=== PATIENT | female | born 1970 | race Caucasian/White ===

== ENCOUNTER 2019-08-17 09:23 | Outpatient (CLI) | payer OTHER, SELFPAY ==
--- NOTE | 2019-08-17 12:19 | CT_ITS ---
WS: [id number] CT ABDOMEN AND PELVIS WITH CONTRAST HISTORY: ABDOMINAL PAIN, RIGHT upper quadrant pain. TECHNIQUE: Imaging performed of the abdomen and pelvis with IV contrast. Single phase imaging of the abdomen. Coronal and sagittal reformats are submitted. All CT scans at [facility] use at least one of these dose optimization techniques: automated exposure control; mA and/or kV adjustment per patient size (includes targeted exams where dose is matched to clinical indication); or iterativ e reconstruction. IV CONTRAST: Omnipaque 300; 95 mL IV. Oral contrast: Yes. DLP: 1077.4 mGycm COMPARISON: 07/27/2019 Lower thorax: Lung bases are clear. Heart is normal size. Small hiatal hernia. Liver/biliary system: Normal size with no intrahepatic dilatation. Gallbladder: Gallbladder is normally distended but contains numerous stones of variable density. Ther e is mild wall thickening and enhancement but no evidence for an acute cholecystitis. Pancreas: Normal. Spleen: Normal. Adrenal glands: Normal. Right kidney: Normal. Left kidney: Hypodense area in the upper pole the LEFT kidney consistent with a small cortical cyst. No solid mass or obstruction. Aorta: Normal. Lymphadenopathy: None. Free fluid: None. GI tract: The appendix is normal and contains air. Moderate fecal retention throughout the colon. No obstruction. Abdominal wall: Unremarkable abdominal wall. No hernia. Pelvis: Urinary bladder is normal size. Prior hysterectomy. Both ovaries are still present and contai n small follicles. No free fluid or adenopathy in the pelvis. Bones: Mild spondylosis in the lower thoracic and lumbar spines. No osseous destruction. CT/CT abdomen pelvis w con* [id number] IMPRESSION: 1. Cholelithiasis without evidence for acute cholecystitis. Numerous stones di stend the gallbladder. 2. Normal appendix. 3. Mild constipation. 4. Small hiatal hernia. 5. Status post hysterectomy.
[2019-08-17] MEDS: iohexol 300 mg/mL 50 mL Btl PO (14:00)
[2019-08-17] MEDS: iohexol 300 mg/mL 100 mL Btl IV (14:02)
== END 2019-08-17 09:24 | disposition home or self-care (01) ==
PROVIDERS: Family Provider Nurse Practitioner; PCP Physician Assistant; Referring Provider Physician Assistant; Visit Provider Surgery
DX: K80.20 Calculus of gallbladder without cholecystitis without obstruction (principal); K59.00 Constipation, unspecified; K44.9 Diaphragmatic hernia without obstruction or gangrene; K82.8 Other specified diseases of gallbladder; Z90.710 Acquired absence of both cervix and uterus
CPT/HCPCS: 74177; Q9967

== ENCOUNTER 2019-09-08 16:32 | Outpatient (CLI) | payer OTHER, SELFPAY ==
[2019-09-08 17:28] LABS: Alanine Aminotransferase 25 U/L (0-33); Albumin Level 4.7 g/dL (3.5-5.2); Alkaline Phosphatase 74 IU/L (35-105); Aspartate Amino Transferase 21 U/L (0-32); Globulin 3.1 g/dL (1.3-4.6); Total Bilirubin 0.2 mg/dL (0.15-1.2); Total Protein 7.8 g/dL (6.6-8.7)
== END 2019-09-08 16:33 | disposition home or self-care (01) ==
LOC: LAB 16:35
PROVIDERS: Family Provider Nurse Practitioner; PCP Physician Assistant; Visit Provider Surgery
DX: R10.9 Unspecified abdominal pain (principal)
CPT/HCPCS: 36415; 80076

== ENCOUNTER 2019-09-27 10:40 | Day surgery (SDC) | payer OTHER, SELFPAY ==
[2019-09-24 14:19] VITALS: BMI 29.2
[2019-09-27] VITALS (11 sets, daily range): BP systolic 130–161; BP diastolic 61–97; PULSE 54–79; RESP 15–20; TEMP 36.2–36.9; O2SAT 95–100
--- NOTE | 2019-09-27 11:36 | P.ANESASSM_ITS ---
Pre-Anesthetic Assessment Pre-Anesthetic Assessment: Height/Weight: Height 1.63 m Weight 77.111 kg Temp Pulse Resp BP Pulse Ox 98.4 F 79 18 130/87 99 09/27/19 11:06 09/27/19 11:06 09/27/19 11:06 09/27/19 11:06 09/27/19 11:06 Preop Diagnosis: Symptomatic cholelithiasis Proposed Procedure: Operation Date: 09/27/19 12:30 Proposed Procedures p Laparoscopic Cholecystectomy 87851 K80.20(Not Applicable) - Claudio Pires MD Last intake: Intake Last Liquid Date 09/26/19 Last Liquid Time 22:00 Last Solid Date 09/26/19 Last Solid Time 20:00 Social: Social History: Tobacco Packs per day: 1 Pack years: 45 Exam: Pre-Anes Outpt Exam: alert, oriented x 3, clear to auscultation bilaterally and regular rate & rhythm Airway: Submandibular: WNL Cervical ROM: WNL MP: 1 GI: Comments: cholelithiasis Anesthetic Plan: ASA status: 2 Anesthesia: General PFSH Anesthesia PFSH: Social History Smoking and tobacco status: current every day smoker cigarettes Packs smoked per day: 1.5 Years cigarettes smoked: 20 Quit status (tobacco): has tried quititng Second hand smoke exposure: No Smoking risk assessment/counseling performed?: No Alcohol intake: current Alcohol intake frequency: holidays/special occasions only Alcohol type: wine Desire information about alcohol rehabilitation?: No Adopted: No Caregiver/support person: Yes Lives independently: Yes Household members: spouse Housing: House Marital status: Number of children: 3 Number of grandchildren: 1 Highest education level completed: High School Graduate service: No Current occupational status: unemployed Current occupational exposures/hazards: No Pets and animals: Yes Pets & animals: cat(s) and dog(s) History of recent travel: No Sexually active: Yes Current gender identity: Female Maddie/Gnosticism: None Special maddie needs: No Agree to transfusion: Yes Financial difficulty paying for basics: Not Very Hard Female Reproductive History: Spontaneous abortions: No Data Anesthesia Cardiac Studies: No Data to Display
[2019-09-27] MEDS: sodium chloride 0.9% 1,000 ML 30 ML IV (11:49)
--- NOTE | 2019-09-27 12:35 | W.PM.OPSUD ---
Surgery/Procedure H&P Update DATE OF PROCEDURE: September 27, 2019 DATE H&P PERFORMED: 09/08/19 H&P UPDATE INFORMATION: I have reviewed H&P completed within last 30 days, I have examined patient prior to procedure and No changes to prior documentation PREOP DIAGNOSIS: Symptomatic cholelithiasis PRIMARY INDICATION FOR PROCEDURE: The same PLANNED PROCEDURE: Operation Date: 09/27/19 12:30 Proposed Procedures p Laparoscopic Cholecystectomy 28497 K80.20(Not Applicable) - Claudio Pires MD
[2019-09-27] MEDS: lidocaine 2% INJ 20 mL INJECTION (13:26)
--- NOTE | 2019-09-27 14:17 | PM.OP ---
Operative Report Date of procedure: September 27, 2019 Pre-op Diagnosis: Symptomatic cholelithiasis Post-op diagnosis: other (Chronic calculus cholecystitis with liver enlargement likely due to fatty liver) Procedure Done: Laparoscopic cholecystectomy Specimens removed/disposition: Gallbladder and contents Density Control Puncher: Adelso Holm Circulating nurse Laura Anesthesia: General (SUDHIR Velázquez) Estimated blood loss (mL): 10 Condition: stable Disposition: floor Brief History: This is a pleasant 48 years old female patient presents with abdominal pain and fatty dyspepsia. Plan of care; After thorough history physical examination and reviewing the chart ,I counseled the patient for laparoscopic cholecystectomy possible open, indications risks including but not limited injury to the common bile duct and other viscera.benefits and alternatives all discussed with the patient, and she did agree to proceed. All questions have been answered and all concerns have been addressed to patient's satisfaction. Informed consent per chart Procedure: Patient was identified in the holding area and taken back to the operative suite, placed in supine position intubated by anesthesia . Time-out was done verifying the patient's name/date of /planned procedure and destination after the procedure, all were in agreement. SCDs confirmed to be functioning, preoperative antibiotics administered per protocol, and beta halley protocol was confirmed. Patient was appropriately secured to the table, footboard was applied to the OR table, before prep and drape anesthesia was asked to tilt the table back and forth to make sure that the patient is appropriately secured and she was. Prep and drape of the abdomen was done under the usual sterile technique, followed by that supraumbilical skin incision,skin incision was done by a 15 blade knife, and stay sutures were applied to the fascia and Pacheco trocar technique was used to enter the abdominal without injuring any abdominal viscera, started by low flow gas insufflation followed by a high flow, started with a 10 mm laparoscope and under direct vision there was no evidence of any injuries, the scope then switched to a 30? ,10 millimeter scope and under direct visualization 5 millimeter trocar was inserted in the epigastric region followed by two 5 mm trocars were inserted in the right upper quadrant that was done after injection of local lidocaine 2% at all incision sites. Gallbladder showed chronic calculus cholecystitis with adhesions Hepatomegaly likely due to fatty liver Patient was then positioned in the head up and tilted to the left dissection started by taking adhesions down using [place] forceps with heat, continued dissection until I identified the critical view of the cystic duct and cystic artery where seen connected to the gallbladder. Clips were applied on the cystic duct towards the common bile duct 1 towards the gallbladder then divided is in sharp scissors, 2 clips were then applied onto the cystic artery and 1 towards the gallbladder and divided by sharp scissors. There was an additional traversing vessel that was clipped and divided as well. Dissection was then carried along of the gallbladder from the gallbladder fossa using cautery as well as sharp dissection with heat energy. The gallbladder then was dissected out from the gallbladder fossa totally , cholecystectomy was then achieved and was placed in an Endo Catch bag and then retrieved from the Pacheco trocar site under direct visualization using a 5 mm 30? scope through the epigastric trocar, specimen was then passed to the circulating nurse to go for permanent pathology,irrigation and hemostasis was done to the gallbladder fossa after hemostasis was secured, final survey laparoscopy was done that showed no injuries. Suction irrigation was obtained The supraumbilical fascial defect was then closed using interrupted Vicryl sutures using a fascial closure device ;Chai Queen under direct visualization Gas was allowed to deflate,Trocars were then taken out under direct vision there was no evidence of bleeding Specimen was passed to the circulating nurse for permanent pathology. No drains were placed and the supraumbilical incision as well as all trocar sites were closed by by 4-0 Monocryl to approximate the skin edges of the supraumbilical incision, dressing was applied in the form of Dermabond and the patient patient got extubated and was taken to recovery area in a stable condition. Count of sponges, needles and instruments were completed at the end of the procedure I was present for the whole entire procedure.
--- NOTE | 2019-09-27 14:22 | SUR.PHASEI ---
1420 PATIENT TO PACU AT THIS TIME. RR EVEN AND UNLABORED,. SPO2 100% ON RA. 4 INCISIONS TO ABDOMEN, CDI. PATIENT UNRESPONSIVE TO VERBAL STIMULI AT THIS TIME.
[2019-09-27] MEDS: ondansetron 2 mg/ML SDV 2 mL 4 MG IVP (14:30)
[2019-09-27] MEDS: fentaNYL 50 mcg/mL INJ 2mL IVP (14:34)
--- NOTE | 2019-09-27 15:00 | SUR.PHASEI ---
1450 PATIENT TO OPS. AMBULATORY FROM [facility] TO [facility] WITH STEADY GAIT. 4 INCISIONS, DRY AND INTACT.,
[2019-09-27] MEDS: HYDROcodone-acetaminophen 5-325 mg Tablet 1 TAB PO (15:31)
== END 2019-09-27 15:55 | disposition home or self-care (01) ==
PROVIDERS: Family Provider Nurse Practitioner; PCP Physician Assistant; Visit Provider Surgery
PROC: 0FT44ZZ Resection of Gallbladder, Percutaneous Endoscopic Approach (ICD-10-PCS; CPT 47562; principal; 2019-09-27 12:30)
DX: K80.10 Calculus of gallbladder with chronic cholecystitis without obstruction (principal); F17.210 Nicotine dependence, cigarettes, uncomplicated
CPT/HCPCS: 47562; 12345; 88304; 96365; J0131; J0690; J1100; J2001; J2405; J2704; J2710; J3010; J3490; J7030

== ENCOUNTER 2020-06-16 10:40 | Outpatient (CLI) | payer OTHER, SELFPAY ==
--- NOTE | 2020-06-16 10:50 | CT_ITS ---
WS: [id number] CT scan of the neck. Additional two-dimensional coronal and sagittal reconstruction was performed. Clinical Data: DYSPHAGIA Comparison: None. DLP: 2496.[address] scans at [facility] use at least one of these dose optimization techniques: automat ed exposure control; mA and/or kV adjustment per patient size (includes targeted exams where dose is matched to clinical indication); or iterative reconstruction. Findings: There is a calcification in the left submandibular gland measuring 0.5 x 0.8 cm which may represent a large salivary duct stone. This is seen best on axial image 23 of 56. No lymphadenopathy is noted. The remainder of the salivary glands is unremarkable. There is no prever tebral soft tissue swelling. The larynx is symmetric. The thyroid gland shows normal enhancement. The floor of the mouth and parapharyngeal spaces are normal. The oral cavity is unremarkable. The carotid arteries bifurcate normally. The vertebral arteries are normal. The cervical spine shows minimal osteoarthritis from C4 through C6. The lung apices show no abnormalities. The portions of the intracranial circulation which are seen demonstrate no abnormalities. No erosion of the skull or sku ll base is seen. The mastoid air cells, internal auditory canals, sella turcica, paranasal sinuses an d intraorbital contents are unremarkable. CT/CT neck w con* [id number] Impression: Probable left submandibular salivary gland stone measuring 0.5 x 0.8 cm.
[2020-06-16] MEDS: iohexol 300 mg/mL 100 mL Btl IV (11:24)
== END 2020-06-16 10:41 | disposition home or self-care (01) ==
LOC: RADWPI 10:44
PROVIDERS: PCP Physician Assistant; Visit Provider Specialist
DX: R13.10 Dysphagia, unspecified (principal)
CPT/HCPCS: 70491; Q9967

== ENCOUNTER 2020-06-23 10:02 | Outpatient (CLI) | payer OTHER, SELFPAY ==
[2020-06-23 10:36] LABS: Basophils # 0.1 10^3/uL (0.0-0.1); Basophils % 1.2 %; Eosinophils # 0.3 10^3/uL (0.0-0.8); Eosinophils % 3.1 %; Hematocrit 46.7 % (37.0-47.0); Hemoglobin 15.4 g/dL (11.5-15.3); Lymphocytes # 2.6 10^3/uL (0.8-4.8); Lymphocytes % 25.3 %; Mean Corpuscular Hemoglobin 30.6 pg (28.0-34.0); Mean Corpuscular Volume 92.7 fL (81-99); Mean Platelet Volume 10.8 fL (7.4-10.4); Monocytes # 0.9 10^3/uL (0.2-0.9); Monocytes % 8.6 %; Neutrophils # 6.29 10^3/uL (1.8-7.7); Neutrophils % 60.5 %; Nucleated Red Blood Cells % 0 %; Platelet Count 236 10^3/cmm (130-400); Red Blood Count 5.04 10^6/uL (4.1-5.3); Red Cell Distribution Width 12.6 % (12.1-15.1); White Blood Count 10.4 10^3/uL (4.0-10.0)
--- NOTE | 2020-06-23 10:49 | ECG_ITS ---
[facility] Test Date: 2020-06-23 Pat Name: Jagdish North Department: Room: Gender: Female Dot Compliance Coordinator: : 1970 Requested By: Terrence Flood Order Number: [id number] Anastasia MD: Jennifer Dodson M.D. Measurements Intervals [place] Rate: P: WI: QRS: 0 QRSD: T: 0 QT: QTc: Interpretive Statements SINUS RHYTHM POSSIBLE OLD SEPTAL INFARCT WARNING: DATA QUALITY MAY AFFECT INTERPRETATION Compared to ECG 02/25/2017 09:03:39 Sinus rhythm no longer present Electronically Signed On 06-23-2020 20:03:15 MINI BACCARAT DEALER by Jennifer Dodson M.D. [id number] f
[2020-06-23 11:01] LABS: Alanine Aminotransferase 16 U/L (0-33); Albumin Level 4.5 g/dL (3.5-5.2); Alkaline Phosphatase 76 IU/L (35-105); Anion Gap 14.3 (5-19); Aspartate Amino Transferase 15 U/L (0-32); Blood Urea Nitrogen 13 mg/dL (6-20); Calcium 9.4 mg/dL (8.5-10.5); Carbon Dioxide 26 mmol/L (22-29); Chloride 99 mmol/L (98-107); Globulin 2.8 g/dL (1.3-4.6); Glomerular Filtration Rate 89.7 mL/min (90-130); Glucose 94 mg/dL (65-115); Osmolality Calculated 280 mOsm/kg (285-295); Potassium 4.3 mmol/L (3.5-5.1); Sodium 135 mmol/L (136-145); Total Bilirubin 0.2 mg/dL (0.15-1.2); Total Protein 7.3 g/dL (6.6-8.7)
== END 2020-06-23 10:03 | disposition home or self-care (01) ==
LOC: LAB 10:11
PROVIDERS: PCP Physician Assistant; Visit Provider Specialist
DX: Z01.810 Encounter for preprocedural cardiovascular examination (principal)
CPT/HCPCS: 80053; 85025; 93005

== ENCOUNTER 2025-02-21 10:26 | Outpatient (CLI) | payer OTHER, SELFPAY ==
--- NOTE | 2025-02-21 10:42 | MM_ITS ---
WS: [id number] SCREENING DIGITAL BREAST TOMOSYNTHESIS MAMMOGRAM WITH CAD HISTORY: SCREEN COMPARISON: 02/24/2019 Bilateral CC and MLO with tomosynthesis and synthetic mammography submitted. Computer aided detection analyzed. Breast composition: The breasts are heterogeneously dense, which may obscure small masses. Partially obscured mass measures 8 x 7 x 6 mm retroareolar RIGHT breast at a middle depth. There are additional small calcifications and asymmetries which are stable since 2019. No architectural distortion. MM/MM [facility] tomosynthesis [id number] IMPRESSION: BI-RADS: 0 - Incomplete: Need additional imaging evaluation FOLLOW UP: Need Additional Imaging Recommendation: Limited RIGHT breast ultrasound, retroareolar middle depth.
== END 2025-02-21 10:27 | disposition home or self-care (01) ==
LOC: RAD 10:28
PROVIDERS: PCP Physician Assistant; Visit Provider Physician Assistant
DX: Z12.31 Encounter for screening mammogram for malignant neoplasm of breast (principal); R92.333 Mammographic heterogeneous density, bilateral breasts; N63.41 Unspecified lump in right breast, subareolar; R92.1 Mammographic calcification found on diagnostic imaging of breast
CPT/HCPCS: 77063; 77067

== ENCOUNTER 2025-03-14 09:56 | Outpatient (CLI) | payer OTHER, SELFPAY ==
--- NOTE | 2025-03-14 10:09 | MM_ITS ---
WS: [id number] ADDITIONAL VIEWS RIGHT MAMMOGRAM WITH DIGITAL BREAST TOMOSYNTHESIS. RIGHT BREAST ULTRASOUND HISTORY: ABNORMAL MAMMO COMPARISON: 02/21/2025, 02/24/2019 RIGHT MAMMOGRAM: Spot compression views and true ML with digital breast tomosynthesis and SM. Breast composition: The breasts are heterogeneously dense, which may obscure small masses. Well-circumscribed high density mass measuring 6 x 8 x 8 mm mid retroareolar region RIGHT breast. No associated calcifications. No distortion. There are additional scattered benign calcifications in the visualized breast. RIGHT BREAST ULTRASOUND 2-D and color Doppler imaging submitted. Retroareolar middle depth is a cyst measuring 0.6 x 0.6 x 0.5 cm. There is through transmission. No solid component. This corresponds to the mass seen on the mammogram. MM/MM diag RT tomosynthesis [id number] IMPRESSION: BI-RADS: 2 - Benign FOLLOW UP: 1 Year Follow-up Well-circumscribed mass retroareolar RIGHT breast is a benign cyst.
== END 2025-03-14 09:57 | disposition home or self-care (01) ==
LOC: RAD 09:57
PROVIDERS: PCP Physician Assistant; Visit Provider Physician Assistant
DX: N60.01 Solitary cyst of right breast (principal)
CPT/HCPCS: 76642; 77061; G0279